=== PATIENT | female | born 1990 | race Caucasian/White ===

== ENCOUNTER 2017-12-26 16:54 | Emergency (ER) | payer BC ==
[~2017-12-26] VITALS: Ht 180.3 cm; Wt 88.0 kg
[2017-12-26 16:57] VITALS: BP 118/80
[2017-12-26] MEDS ORDERED: KETOROLAC 30 MG/1 ML ONE (17:11)
[2017-12-26] MEDS ORDERED: KETOROLAC 30 MG/1 ML IM ONE (17:30)
== END 2017-12-26 17:51 | disposition home or self-care (01) ==
LOC: ED 17:30
DX: M25.512 Pain in left shoulder (principal); F32.9 Major depressive disorder, single episode, unspecified
CPT/HCPCS: 73030; 96372; 99284; J1885

== ENCOUNTER 2018-06-30 16:25 | Emergency (ER) | payer BC ==
[~2018-06-30] VITALS: Ht 175.3 cm; Wt 95.3 kg
[2018-06-30 17:23] LABS: BASOPHILS # (AUTO) 0.04 x10^3/uL (0-0.1); BASOPHILS % (AUTO) 0 % (0-1); EOSINOPHILS # (AUTO) 0.22 x10^3/uL (0-0.4); EOSINOPHILS % (AUTO) 2 % (1-7); LYMPHOCYTES # (AUTO) 1.87 x10^3/uL (1-3.4); LYMPHOCYTES % (AUTO) 17 % (22-44); MD NO; MEAN CORPUSCULAR HEMOGLOBIN 29.3 pg (27.0-34.8); MEAN CORPUSCULAR HGB CONC 33.6 g/dL (32.4-35.8); MEAN CORPUSCULAR VOLUME 87.2 fL (80-100); MEAN PLATELET VOLUME 10.1 fL (7.4-10.4); MONOCYTES # (AUTO) 0.96 x10^3/uL (0.2-0.8); MONOCYTES % (AUTO) 9 % (2-9); NEUTROPHILS # (AUTO) 7.82 x10^3/uL (1.8-6.8); NEUTROPHILS % (AUTO) 72 % (42-75); PLATELET COUNT 247 x10^3/uL (130-400); RED BLOOD COUNT 4.75 x10^6/uL (3.82-5.3); RED CELL DISTRIBUTION WIDTH 13.7 % (9.6-15.2)
[2018-06-30 17:30] LABS: ANION GAP 6 mmol/L (5-15); CALCIUM 10.4 mg/dL (8.5-10.1); CHLORIDE 108 mmol/L (98-107); CREATININE 0.82 mg/dL (0.55-1.02)
--- NOTE | 2018-06-30 18:37 | NUR ---
TO ROOM FROM LOBBY. NAD.
--- NOTE | 2018-06-30 18:45 | NUR ---
PT AMBULATORY TO ROOM 16 W/ C/O BRB X 3 DAYS. PT ALSO C/O LOWER PELVIC PRESSURE AT TIMES. PT STATES BRB ONLY WHEN SHE HAS BM NO LEAKAGE. PT RESTING ON GURNEY. PEACE.
--- NOTE | 2018-06-30 19:05 | NUR ---
REPORT GIVEN TO CHACORTA NELSON RN.
--- NOTE | 2018-06-30 19:08 | NUR ---
PT RESTING ON GURNEY, MONITORS IN PLACE, CALL LIGHT WITHIN REACH.EMT SETUP FOR ANOSCOPY DONE
[2018-06-30] MEDS ORDERED: HYDROcodone/APAP 5/325 TABLET PO ONE (21:00)
[2018-06-30] MEDS ORDERED: HYDROcodone/APAP 5/325 TABLET ONE (21:02)
--- NOTE | 2018-06-30 21:07 | NUR ---
pt medicated per apr. pt up to rr with steady gait
[2018-06-30] MEDS ORDERED: OMNIPAQUE 350 MG/ML, 100ML BOTTLE ONE (21:55)
[2018-06-30 22:05] VITALS: BP 149/85
--- NOTE | 2018-06-30 22:05 | NUR ---
PA AT PT'S BEDSIDE FOR RECHECK
--- NOTE | 2018-06-30 22:10 | NUR ---
Patient/Caregiver given discharge instructions and they have confirmed that they understand the instructions. Patient ambulatory with steady gait.
== END 2018-06-30 22:12 | disposition home or self-care (01) ==
LOC: ED 20:54
DX: K64.8 Other hemorrhoids (principal)
CPT/HCPCS: 36415; 74177; 80048; 84702; 85025; 99284; Q9967